=== PATIENT | female | born 1950 | race Caucasian/White ===

== ENCOUNTER 2016-11-24 15:21 | Emergency (ER) | payer MEDICARE ==
[2016-11-24] MEDS ORDERED: SODIUM CHLORIDE 0.9% 1000ML 1,000 ML IVS ONE (15:42)
[2016-11-24] MEDS ORDERED: ONDANSETRON ODT 8 MG TAB SL SCH (16:00)
--- NOTE | 2016-11-24 16:27 | CT ---
PROCEDURE: Head CLINICAL HISTORY: 66 years Female severe headache COMPARISON: None. TECHNIQUE: Contiguous axial images obtained through the brain without IV contrast. This exam was performed according to our department optimization program which includes automated exposure control, adjustment of the mA and/or kv according to patient size and/or use of iterative reconstruction technique. FINDINGS: The ventricles and sulci are within normal limits for the patient's age. No midline shift or mass effect. No masses identified. No acute intracranial hemorrhage. Chondrocalcinosis along the temporomandibular joints bilaterally. No fluid or significant mucosal thickening in the visualized paranasal sinuses. No depressed calvarial fractures. IMPRESSION: No acute intracranial abnormality is identified. Electronically signed by: Christi Ratliff 11/24/2016 4:27 PM CDT
[2016-11-24] MEDS ORDERED: PROMETHAZINE HCL 25 MG TAB PO ONE (17:12)
[2016-11-24] MEDS ORDERED: ALUMINUM & MAGNESIUM HYDROXIDE 30 ML UD PO ONE (17:12)
[2016-11-24] MEDS ORDERED: cloNIDine HCL 0.1 MG TAB PO ONE ×2 (17:20→18:43)
[2016-11-24] MEDS ORDERED: diazePAM 2 MG TAB PO ONE (17:20)
--- NOTE | 2016-11-24 18:46 | ED.PDOC ---
History of Present Illness - General Chief Complaint: Headache Stated Complaint: Severe headache Time Seen by Provider: 11/24/16 15:26 Source: patient Exam Limitations: no limitations - History of Present Illness Initial Comments: The patient is a 66-year-old female presenting to the emergency room secondary to headache and nausea with 1 episode of vomiting. The patient was sent from an outside ER for a head CT secondary to severity of the headache. The patient's blood pressure is significantly elevated upon arrival. The patient was outside yesterday and exposed to the heat for the better part of the day. Additionally the patient takes clonidine but only takes it once in the morning each day. She reports that on multiple occasion she gets headaches. She does not check her blood pressure regularly. No focal neurological symptoms. No syncope or near syncope. She does not take any medications for gastritis. Her stomach has been a little bit upset for the last week. No diarrhea or constipation. She only threw up one time and there was no blood present. Timing/Duration: 24 hours Severity: moderate Improving Factors: nothing Worsening Factors: nothing Associated Symptoms: loss of appetite, malaise Allergies/Adverse Reactions: Allergies NO KNOWN ALLERGY Allergy (Verified 11/24/16 15:47) Home Medications: Ambulatory Orders Famotidine 20 mg PO DAILY #30 tab 11/24/16 Ondansetron [Zofran Odt] 4 mg PO Q4H PRN #10 tab 11/24/16 Review of Systems - Review of Systems Constitutional: States: malaise EENTM: States: no symptoms reported Respiratory: States: no symptoms reported Cardiology: States: no symptoms reported Gastrointestinal/Abdominal: States: abdominal pain, nausea, vomiting - mild Genitourinary: States: no symptoms reported Musculoskeletal: States: no symptoms reported Skin: States: no symptoms reported Neurological: States: headache Endocrine: States: no symptoms reported All other Systems: No Change from Baseline Past Medical History (General) - Patient Medical History Hx Stroke: No Hx Congestive Heart Failure: No Hx Pacemaker: Yes Hx Hypertension: Yes Hx Thyroid Disease: Yes Hx Diabetes: No Hx Gastroesophageal Reflux: Yes - Vaccination History Hx Influenza Vaccination: Yes - 2016 Hx Pneumococcal Vaccination: Yes - 2016 - Social History Hx Tobacco Use: No Family Medical History - Family History Mother Family History: Unknown Living Status: Physical Exam - Physical Exam General Appearance: Alert, Anxious Eye Exam: bilateral normal Ears, Nose, Throat: hearing grossly normal, normal ENT inspection, normal pharynx Neck: non-tender, full range of motion, supple Respiratory: chest non-tender, lungs clear, normal breath sounds, no respiratory distress, no accessory muscle use Cardiovascular/Chest: normal peripheral pulses, regular rate, rhythm, no edema Peripheral Pulses: radial,right: 2+, radial,left: 2+, dorsalis pedis,right: 2+, dorsalis pedis,left: 2+ Gastrointestinal/Abdominal: soft, other - mild epigastric discomfort palpation Rectal Exam: deferred Back Exam: normal inspection, no CVA tenderness, no vertebral tenderness Extremity: normal range of motion, non-tender, normal inspection, no pedal edema , normal capillary refill 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 Again this is a very limited exam by me. Progress - Progress Progress: 11/24/16 18:47 the patient is a 66-year-old female presenting to the emergency room secondary to headache and gastritis symptoms. head CT was negative for any acute changes. She does seem to have poorly controlled hypertension. The patient has only been taking her clonidine once a day and this may be leading to rebound hypertension later in the day. She is to take her clonidine twice a day and keep a blood pressure diary. She needs to follow up with her primary care doctor in 2 days for reevaluation with those numbers. Additionally the patient needs to brain picker and take Pepcid 20 mg once a day for the next month for the gastritis issues. She will also be written for Zofran for as needed use for any nausea. The patient does have some mild rhabdomyolysis possibly from exposure yesterday were possibly as a side effect of medications. The patient received a liter of IV fluids. Renal function appears good. She should probably have her muscle enzymes repeated towards the end of the week to make sure they are improving. If not then an evaluation of her home medications may be warranted to look for other causes. - Results/Orders Results/Orders: Laboratory Tests 11/24/16 11/24/16 11/24/16 15:58 15:58 15:58 WBC 8.1 RBC 4.46 Hgb 10.9 L Hct 35.0 L MCV 78.5 L MCH 24.4 L MCHC 31.3 L RDW 16.2 H Plt Count 301 MPV 9.0 Absolute Neuts (auto) 4.10 Absolute Lymphs (auto) 2.50 Absolute Monos (auto) 1.10 H Absolute Eos (auto) 0.20 Absolute Basos (auto) 0.20 H Neutrophils % 50.5 Lymphocytes % 31.1 Monocytes % 13.3 H Eosinophils % 2.9 Basophils % 2.2 H PT 12.5 INR 1.110 PTT (SP) 21.3 L Sodium 138 Potassium 3.5 L Chloride 100 L Carbon Dioxide 27 Anion Gap 14.5 BUN 14 Creatinine 1.00 BUN/Creatinine Ratio 14.0 Random Glucose 142 H Serum Osmolality 278.6 Calcium 9.8 Total Bilirubin 1.0 AST 70 H ALT 81 H Alkaline Phosphatase 38 L Creatine Kinase 1039 H* CK-MB (CK-2) 30.2 H* CK-MB (CK-2) % 2.91 Troponin I 0.02 Serum Total Protein 7.9 Albumin 4.1 Globulin 3.8 H Albumin/Globulin Ratio 1.1 Amylase 59 Lipase [address] shows no evidence of intracranial hemorrhage or infarction. No evidence of hydrocephalus. Departure - Departure Clinical Impression: Uncontrolled hypertension, Gastritis Headache Qualifiers: Headache type: unspecified Headache chronicity pattern: acute headache Intractability: not intractable Qualified Code(s): R51 - Headache Disposition: Discharge to Home or Self Care Condition: Fair Departure Forms: ED Discharge - Pt. Copy, Patient Portal Self Enrollment Instructions: DI for Headache, DI for Gastritis, DI for Malignant Hypertension Diet: low salt diet Activity: increase activity as tolerated Referrals: CHELE KING [Primary Care Provider] - 1-2 Days Prescriptions: Famotidine 20 mg PO DAILY #30 tab Ondansetron [Zofran Odt] 4 mg PO Q4H PRN #10 tab PRN Reason: Vomiting Home Medications: Ambulatory Orders Famotidine 20 mg PO DAILY #30 tab 11/24/16 Ondansetron [Zofran Odt] 4 mg PO Q4H PRN #10 tab 11/24/16 Additional Instructions: the patient is a 66-year-old female presenting to the emergency room secondary to headache and gastritis symptoms. head CT was negative for any acute changes. She does seem to have poorly controlled hypertension. The patient has only been taking her clonidine once a day and this may be leading to rebound hypertension later in the day. She is to take her clonidine twice a day and keep a blood pressure diary. She needs to follow up with her primary care doctor in 2 days for reevaluation with those numbers. Additionally the patient needs to brain picker and take Pepcid 20 mg once a day for the next month for the gastritis issues. She will also be written for Zofran for as needed use for any nausea. The patient does have some mild rhabdomyolysis possibly from exposure yesterday were possibly as a side effect of medications. The patient received a liter of IV fluids. Renal function appears good. She should probably have her muscle enzymes repeated towards the end of the week to make sure they are improving. If not then an evaluation of her home medications may be warranted to look for other causes.
[2016-11-24 19:10] VITALS: BP 179/84; TEMP 98; O2SAT 96
== END 2016-11-24 19:05 | disposition home or self-care (01) ==
LOC: ER 15:21
DX: R51 Headache (principal); K29.70 Gastritis, unspecified, without bleeding; I10 Essential (primary) hypertension; E07.9 Disorder of thyroid, unspecified; K21.9 Gastro-esophageal reflux disease without esophagitis; Z95.0 Presence of cardiac pacemaker
CPT/HCPCS: 36415; 70450; 80053; 82150; 82550; 82553; 83690; 84443; 84484; 85025; 85610; 85730; J7030; Q0169

== ENCOUNTER → 2016-12-16 | Outpatient (CLI) | payer MEDICARE | LOC: GMAH 14:17 | PROVIDERS: ATTEND Family Medicine | DX: E53.8 Deficiency of other specified B group vitamins (principal); D64.9 Anemia, unspecified; I10 Essential (primary) hypertension; E78.2 Mixed hyperlipidemia ==

== ENCOUNTER → 2017-02-10 | Outpatient (CLI) | payer MEDICARE | LOC: GMAH 10:32 | PROVIDERS: ATTEND Family Medicine | DX: E78.2 Mixed hyperlipidemia (principal) ==

== ENCOUNTER → 2018-04-26 | Outpatient (CLI) | payer MEDICARE | LOC: GMAH 14:58 | PROVIDERS: ATTEND Family Medicine | DX: R30.0 Dysuria (principal) ==

== ENCOUNTER → 2019-01-30 | Outpatient (CLI) | payer MEDICARE ==
--- NOTE | 2019-01-30 15:48 | CT ---
EXAM DESCRIPTION: Lumbar Spine CLINICAL HISTORY: 68 years, Female, LOW BACK PAIN COMPARISON: None TECHNIQUE: Lumbar CT with thin-section axial imaging with reconstructed MPR images reviewed as well. This exam was performed according to our departmental dose-optimization program, which includes automated exposure control, adjustment of the mA and/or kV according to patient size and/or use of iterative reconstruction technique. FINDINGS: Multilevel degenerative disc disease is present with mild dextroscoliosis and multilevel disc degeneration and narrowing evident. Vertebral height is maintained along with normal vertebral alignment. Post surgical changes involving the posterior elements and spinous process removal at the L4 and upper L5 level particularly on the right with right-sided epidural stimulator in place posteriorly at the L5-S1 level. Postsurgical changes from the L3-4 level cephalad are not apparent. Adequate canal and mild annular prominence at T12-L1 with similar findings at L1-2 with mild facet arthropathy is present. Similar findings are also present at L2-3 with slightly more annular prominence but adequate canal and neural foramina. At L3-4 moderate symmetric annular bulge is present with asymmetric left greater than right disc degenerative change and vacuum phenomena present. Degenerative and/or erosive changes particularly involving the left facet joint is present greater than the right side. Canal remains adequate with normal right L3 and mildly inflamed and narrowed left L3 neural foramen. At L4-5 postsurgical changes are present with prior medial laminotomy and spinous process removal with hypertrophic and erosive facet disease and moderate central and left parasagittal disc protrusion with at least moderate circumferential spinal canal stenosis evident at the upper extent of the disc space at this level. Mild left and moderate right L4 foraminal stenosis is present. Just below the disc space a right upper L5 laminotomy is present with epidural stimulator wire leads coursing through the region of the laminotomy. At L5-S1, epidural electrical probe lying in the posterior right epidural space from the inferior L5 to the inferior S1 level posterior lateral to the thecal sac on the right. Hypertrophic advanced facet disease is present bilaterally at this level. Disc contour is poorly visualized secondary to metallic artifact but no obvious herniation or bony stenosis is noted. Mild foraminal encroachment predominantly from facet disease is present at this level. IMPRESSION: 1. Posterior postsurgical changes at the L4 level with medial laminectomy and spinous process removal as well as partial right upper L5 laminectomy noted with indwelling epidural leads and electrodes in the right posterior epidural space at the L5-S1 level 2. Multilevel degenerative disc disease and facet arthrosis with preserved vertebral height and mild dextroscoliosis of the spine. 3. Essentially normal appearance of the lumbar spine and thoracolumbar junction from L2-3 cephalad with mild annular prominence. 4. At L3-4 modest annular bulge and bilateral moderately advanced facet arthropathy left worse than right with a component of erosive facet disease on the left with narrowed and inflamed appearing left L3 neural foramen. 5. Postsurgical changes L4-5 with moderate central and slightly left parasagittal disc protrusion with moderate central canal stenosis. Mild left and moderate right foraminal stenosis present. Advanced facet disease with mixed degenerative and erosive arthropathy of the facet joints. 6. Annular bulge with advanced facet arthropathy L5-S1 with adequate canal and moderate L5 foraminal narrowing. Electronically signed by: Agustin Elizabeth MD 01/30/2019 3:46 PM CDT
== END ==
LOC: CT 14:00
PROVIDERS: ATTEND Family Medicine
DX: M51.16 Intervertebral disc disorders with radiculopathy, lumbar region (principal); M47.26 Other spondylosis with radiculopathy, lumbar region; Z98.890 Other specified postprocedural states

== ENCOUNTER 2019-03-30 12:01 | Inpatient (IN) | payer MEDICARE ==
--- NOTE | 2019-03-30 12:40 | ED.PDOC ---
History of Present Illness - General Chief Complaint: Neuro Symptoms/Deficits Stated Complaint: Confusion, tremor Time Seen by Provider: 03/30/19 12:09 Source: patient, RN notes reviewed, Vital Signs reviewed, RN/MD Exam Limitations: clinical condition Additional Information: Patient sent for clinic for tremors and confusion. - History of Present Illness Initial Comments: Seen by PCP this AM, noted to be tremoring and with confusion. Sent to ED for workup. Timing/Duration: 1-3 hours Severity: moderate Improving Factors: nothing Associated Symptoms: denies symptoms Allergies/Adverse Reactions: Allergies NO KNOWN ALLERGY Allergy (Verified 11/24/16 15:47) Home Medications: Ambulatory Orders Famotidine 20 mg PO DAILY #30 tab 11/24/16 Ondansetron [Zofran Odt] 4 mg PO Q4H PRN #10 tab 11/24/16 Review of Systems - Review of Systems Constitutional: States: no symptoms reported EENTM: States: no symptoms reported Respiratory: States: no symptoms reported Cardiology: States: no symptoms reported Gastrointestinal/Abdominal: States: no symptoms reported Genitourinary: States: no symptoms reported Musculoskeletal: States: joint pain, other - To hips bilaterally Skin: States: no symptoms reported Neurological: States: other - Confusion Endocrine: States: no symptoms reported Hematologic/Lymphatic: States: no symptoms reported Past Medical History (General) - Patient Medical History Hx Stroke: No Hx Congestive Heart Failure: No Hx Pacemaker: Yes Hx Hypertension: Yes Hx Thyroid Disease: Yes Hx Diabetes: No Hx Gastroesophageal Reflux: Yes - Vaccination History Hx Influenza Vaccination: Yes - 2016 Hx Pneumococcal Vaccination: Yes - 2016 - Social History Hx Tobacco Use: No Family Medical History - Family History Mother Family History: Unknown Living Status: Physical Exam - Physical Exam General Appearance: Alert, Comfortable, No apparent distress Eye Exam: bilateral normal Ears, Nose, Throat: normal ENT inspection Neck: non-tender, full range of motion Respiratory: chest non-tender, lungs clear Cardiovascular/Chest: normal peripheral pulses, regular rate, rhythm Gastrointestinal/Abdominal: non tender, soft Back Exam: normal inspection Extremity: normal range of motion, non-tender 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 Skin Exam: normal color Progress - Progress Progress: 03/30/19 15:30 Initially brought over from clinic for tremors and confusion. Per daughter also with vomiting and diarrhea. Labs showed WBC 16k and Cr 2.[address] head and CXR without acute changes. CT A/P ordered to evaluate vague abdominal pain and elevated WBC. Spoke to Hoa Scott who agrees to admit patient for DEVIN and AMS. - EKG/XRAY/CT EKG: Sinus, no ST T wave changes CT: CT A/P pending. Departure - Departure Clinical Impression: DEVIN (acute kidney injury), Altered mental status, Elevated white blood cell count, Metabolic acidosis Disposition: Discharge to Home or Self Care Departure Forms: ED Discharge - Pt. Copy, Patient Portal Self Enrollment Referrals: CHELE KING [Family Provider] - 1-2 Weeks Home Medications: Ambulatory Orders Famotidine 20 mg PO DAILY #30 tab 11/24/16 Ondansetron [Zofran Odt] 4 mg PO Q4H PRN #10 tab 11/24/16 Decision To Admit - Decistion To Admit Decision to Admit Reason: Admit from ER - For DEVIN, AMS and metabolic acidosis Decision to Admit Date: 03/30/19 Decision to Admit Time: 15:33
--- NOTE | 2019-03-30 12:56 | RAD ---
EXAM DESCRIPTION: Chest,1 View CLINICAL HISTORY: 68 years Female, Decreased breath sounds COMPARISON: Previous chest x-ray March 02, 2019 TECHNIQUE: AP portable chest. FINDINGS: Heart size is large with normal pulmonary vascularity. Cardiac pacer in place. Plate and screws in the lower C-spine. Metallic densities in the upper thoracic paraspinous region unchanged from previous. No consolidating infiltrate. No pulmonary mass or worrisome nodule. No pneumothorax or pleural effusion. Bones are unremarkable. IMPRESSION: Prominent heart without congestive failure. Electronically signed by: Chris Delong MD 03/30/2019 12:55 PM CDT
--- NOTE | 2019-03-30 13:01 | CT ---
EXAM DESCRIPTION: Head CLINICAL HISTORY: Confusion COMPARISON: Previous CT head November 24, 2016 TECHNIQUE: Noncontrast head CT was performed with routine protocol. FINDINGS: Normal hawkins-white matter differentiation. Ventricles and sulci are normal for age. No high density hemorrhage, focal edema or shift of the midline. No sulcal effacement. Normal orbital contents. Basilar cisterns appear clear. Intact calvarium with no fracture or lytic lesion. Normal aeration of tympanic cavities and mastoid air cells. Complete opacification of the maxillary sinuses and opacification of the anterior right ethmoid sinus air cells consistent with sinusitis. Developing mucoceles cannot be excluded. No bone destruction. Opacification of right frontal sinus air cell. Left frontal sinus air cell and sphenoid sinus are clear. Skull base appears intact. Symmetrical internal auditory canals. Coronal and sagittal reformatted images confirm the findings. No change in the appearance of the brain compared to the previous study. Paranasal sinus disease appears new. IMPRESSION: No acute intracranial pathologic process. Paranasal sinus opacification involving maxillary, right frontal and anterior right ethmoid air cells, most consistent with sinusitis. This exam was performed according to our departmental dose-optimization program, which includes automated exposure control, adjustment of the mA and/or kV according to patient size and/or use of iterative reconstruction technique. Total DLP equals 859.97 mGycm. Electronically signed by: Chris Delong MD 03/30/2019 12:59 PM CDT
--- NOTE | 2019-03-30 15:35 | CT ---
EXAM DESCRIPTION: Abdoment/Pelvis w/o Contrast CLINICAL HISTORY: Abdominal pain, elevated WBC COMPARISON: None. TECHNIQUE: Noncontrast transaxial CT images of the abdomen and pelvis are obtained. Images are degraded by patient breathing motion artifact limiting detailed evaluation. This exam was performed according to our departmental dose-optimization program, which includes automated exposure control, adjustment of the mA and/or kV according to patient size and/or use of iterative reconstruction technique . FINDINGS: Visualized lower chest shows mild emphysematous changes in the lungs without acute infiltrate. At least 2 less than 4 mm noncalcified pulmonary nodules in the left lower lobe are seen. Cardiac pacemaker leads are seen. Given the limitations of a noncontrast exam the liver, spleen, pancreas, adrenal glands, and gallbladder are unremarkable. Abdominal vasculature is unremarkable. 4 mm nonobstructing calcification in an upper pole calyx of the right kidney. At least 3 less than 5 mm nonobstructing calcifications are seen in calyces of the left mid and upper pole calyces. No ureteral calcification or obstruction. Urinary bladder is partly distended and unremarkable. Uterus is not identified and presumed surgically absent. The ovaries are not seen. Appendix is not identified. Poor distention of the stomach. No mass lesion or inflammatory changes. No dilated loops of small bowel. The colon is unremarkable. No significant diverticular disease. No pathologically enlarged abdominal or retroperitoneal lymphadenopathy. No free intraperitoneal air or abnormal drainable fluid collections. Small fat-containing umbilical hernia. Large calcified granulomata are likely related to prior injections are seen in the gluteal regions bilaterally. Osseous structures are osteopenic. Mild dextrocurvature of the mid lumbar spine. Dorsal column stimulator is seen in the spinal canal at the S1 level. Moderate to severe spondylitic changes of the spine are seen. IMPRESSION: No acute findings on noncontrast CT of the abdomen and pelvis. Nonobstructing bilateral nephrolithiasis. Electronically signed by: Alex Aguila MD 03/30/2019 3:33 PM CDT
--- NOTE | 2019-03-30 16:24 | HP ---
SUPERVISING PHYSICIAN: Ramos Martinez MD CHIEF COMPLAINT: Neurological deficits. HISTORY OF PRESENT ILLNESS: This is a 68 year-old female patient who was seen in her primary care physician's office today. She was quite lethargic and had tremors with confusion. She was sent to the Emergency Room for a workup. It should be noted that the patient has been on long-term narcotic use and has been slowly weaned down by her primary care physician, Magdy Doe MD. She also has some chronic insomnia and was on high doses of Restoril and those have also been weaned down. She does have a history of metabolic encephalopathy in the past. Fluids were started in the Emergency Room. Her initial vital signs were temperature of 97.8, heart rate 113, blood pressure 96/59, respiratory rate 15, oxygen saturation 96% on room air. Lab was drawn. Her WBCs were 16,600, she had a normal differential. Hemoglobin 11, hematocrit 37.1. Sodium 139, potassium 4.6, chloride 105, carbon dioxide 10, BUN 32, creatinine 2.41, blood glucose 142, AST 49, troponin 0.04. Urinalysis had a moderate amount of urine blood. Urine drug screen was negative except she was positive for benzodiazepines. It is to be noted she gets quite large doses of hydrocodone. She has been taking 10/325 mg 3 times a day and her urine drug screen was not positive for narcotics. It was also noted she was supposed to have 10 additional Restoril in her prescription and it was empty. I was called for hospital admission. PAST MEDICAL HISTORY: 1. Hypertension. 2. Hypothyroidism. 3. Rhabdomyolysis. 4. Peripheral neuropathy. 5. Chronic insomnia. 6. Type 2 diabetes mellitus. 7. Gastroesophageal reflux disease. 8. Depression and anxiety. 9. Chronic pain syndrome. 10. Low back pain. PAST SURGICAL HISTORY: 1. Hysterectomy. 2. Herniated disk with fusion x2. 3. Pacemaker insertion. CURRENT MEDICATIONS: Per the EMR and awaiting verification. ALLERGIES: NO KNOWN ALLERGIES. FAMILY HISTORY: SOCIAL HISTORY: REVIEW OF SYSTEMS: Difficult to obtain due to patient's lethargy, although she does wake up and say she is presently not in pain. PHYSICAL EXAMINATION: VITAL SIGNS: Temperature 97.9, heart rate 94, blood pressure 109/77, respiratory rate 22, oxygen saturation 98% on room air. GENERAL: This is a a 68 year-old female patient who is lying in her hospital bed. She is very lethargic. She does open her eyes to command. She can answer some simple yes/no questions. HEENT: Normocephalic and atraumatic. Pupils are equal and reactive. NECK: Supple without mass. CHEST: Diminished at the bases but otherwise clear to auscultation. Chest has equal rise and fall with inspiration and expiration. CARDIOVASCULAR: Regular rate and rhythm. ABDOMEN: Soft, nondistended, non-tender. Bowel sounds are positive. EXTREMITIES: No cyanosis, clubbing, or edema. NEUROLOGIC: She is lethargic to obtunded. She does open her eyes. She is oriented to person and place. SKIN: Warm and dry and pale. LABORATORY: As per the history of present illness. RADIOLOGY: Chest x-ray shows prominent heart without congestive failure. Head CT shows no acute intracranial pathologic process and sinusitis. Abdominal/pelvic CT shows no acute findings on non-contrast CT of the abdomen and pelvis and nonobstructing bilateral nephrolithiasis. All other labs and films have been reviewed via the EMR. ASSESSMENT: 1. Acute kidney injury with admitting creatinine of 2.4, baseline creatinine is less than 1. 2. Metabolic acidosis with metabolic encephalopathy. 3. Anxiety and depression. 4. Chronic pain disorder, continuing to be weaned off her narcotics by her primary care physician, Magdy Doe MD. 5. Polypharmacy. 6. Hypothyroidism. 7. Peripheral neuropathy. 8. Diabetes mellitus type 2, currently on no medications. 9. Chronic insomnia, currently being weaned off of her Restoril slowly. 10. Hypertension. 11. Congestive heart failure of unknown etiology with no current echocardiogram to review at this time. 12. Gastroesophageal reflux disease. PLAN: I have admitted the patient to the hospital. We will give her IV fluids with bicarb in it and recheck her labs in the morning. Neuro checks have been ordered. We will review her home medications after they are verified as there is some discrepancy in what patient is actually taking. At this point, she does not complain of any pain and I do not believe the patient has been taking any of her narcotics as her urine drug screen was negative and she has supposedly been taking 3 hydrocodone daily so unless she complains of pain, we will decide on her narcotic medications at a later time. I have also put her on sliding scale Humalog insulin with sushilac. and h.s. blood sugars. She also has a very small amount of benzodiazepine as needed to help both with the anxiety and to sleep and her Cymbalta. She has a one-time dose for in the morning until those are verified. I have ordered an echocardiogram and she will also be on the quality assurance monitor body. She has a PPI for ulcer prophylaxis and Lovenox for DVT prophylaxis. I spoke with Dr. Doe, her primary care physician, and at this point he would like her Neurontin continued and we can slowly try to increase it. We will also continue on the Cymbalta 60 mg daily. He would like her to be off the Restoril as well as off the hydrocodone. She will also most likely need the Tizanidine discontinued. We can discontinue those here in the hospital and they can be followed up with Dr. Doe in office. We will continue to monitor her closely and follow as needed. [facility][id number] [facility]
[2019-03-30] MEDS ORDERED: HYDROcodone 5MG/APAP 325MG 1 EA TAB PO ONE (18:00)
[2019-03-30] MEDS ORDERED: DEXTROSE 5% 1000ML 1,000 ML IVS ONE (18:14)
[2019-03-30] MEDS ORDERED: SODIUM BICARBONATE VIAL 50 MEQ/50 ML VIAL ONE (18:15)
[2019-03-30] MEDS: SODIUM BICARBONATE SYRINGE 75 MEQ in DEXTROSE 5% 1000ML 1,000 ML IV PRN (18:21)
[2019-03-30] MEDS: IV SET AND CAP CHANGE INJ INJ SCH (18:32)
[2019-03-30] MEDS ORDERED: DEXTROSE 50% 25 GM/50 ML SYG IV PRN (20:18)
[2019-03-30] MEDS ORDERED: GLUCAGON INJ 1 MG VIAL SUBCU PRN (20:18)
[2019-03-30] MEDS: GABAPENTIN 300 MG CAP PO SCH (20:26)
[2019-03-30] MEDS: SODIUM CHLORIDE 0.9% (FLUSH) 10 ML SYG IV SCH (20:27)
[2019-03-30] MEDS: ENOXAPARIN SODIUM 30 MG/0.3 ML SYG SUBCU SCH (20:27)
[2019-03-30] MEDS: INSULIN LISPRO 100 UNITS/ML PEN SUBCU SCH (21:10)
[2019-03-30] MEDS: HYDROcodone 5MG/APAP 325MG 1 EA TAB PO SCH (21:26)
[2019-03-31] MEDS ORDERED: DEXTROSE 5% 1000ML 1,000 ML IVS ONE ×2 (03:16→16:43)
[2019-03-31] MEDS ORDERED: SODIUM BICARBONATE VIAL 50 MEQ/50 ML VIAL ONE ×2 (03:16→16:44)
[2019-03-31] MEDS: SODIUM BICARBONATE SYRINGE 75 MEQ in DEXTROSE 5% 1000ML 1,000 ML IV PRN (03:24)
[2019-03-31] MEDS: HYDROcodone 5MG/APAP 325MG 1 EA TAB PO SCH (05:57)
[2019-03-31] MEDS: PANTOPRAZOLE SODIUM IV 40 MG VIAL IV SCH (05:58)
[2019-03-31] MEDS: INSULIN LISPRO 100 UNITS/ML PEN SUBCU SCH ×4 (07:22→20:58)
[2019-03-31] MEDS ORDERED: DULoxetine HCL 30 MG CAP PO ONE (09:00)
[2019-03-31] MEDS: GABAPENTIN 300 MG CAP PO SCH ×3 (09:11→20:12)
[2019-03-31] MEDS: SODIUM CHLORIDE 0.9% (FLUSH) 10 ML SYG IV SCH ×2 (09:11→20:13)
[2019-03-31] MEDS ORDERED: MAGNESIUM SULFATE PREMIX 2GM 2 GM in PREMIX BAG 1 BAG IVPB ONE (09:23)
[2019-03-31] MEDS ORDERED: MAGNESIUM SULFATE PREMIX 2GM 50 ML IVPB ONE (09:30)
--- NOTE | 2019-03-31 10:44 | CT ---
EXAM DESCRIPTION: Abdoment/Pelvis w/o Contrast CLINICAL HISTORY: 68 years Female, Leukocytis, Metobolic acidosis unkow etiology COMPARISON: CT abdomen and pelvis dated 03/30/2019. TECHNIQUE: Contiguous 3 mm axial images were obtained from the lung bases to the level of the proximal femora without the administration of intravenous or oral contrast. Sagittal and coronal reconstructions were reviewed. FINDINGS: Limited evaluation of the solid organs due to the lack of intravenous contrast. THORAX: The imaged lower thorax demonstrates no gross abnormality. LIVER: The liver demonstrates normal size and density with no intrahepatic biliary ductal dilatation. GALLBLADDER: Grossly unremarkable. PANCREAS: Nonspecific stranding is identified around the head and uncinate process of the pancreas. Remainder of the pancreas appears normal. SPLEEN: Normal ADRENAL GLANDS: Normal with no nodules or masses. KIDNEYS: Nonobstructive calculi measuring up to 5 mm are noted in both kidneys. No hydronephrosis. The visualized ureters appear grossly unremarkable. STOMACH: Mild thickening of the distal esophagus could be secondary to reflux. The stomach is mildly distended with no gross abnormality. SMALL BOWEL: The small bowel loops demonstrate variable degrees of distention with no abnormal dilatation or other signs to suggest bowel obstruction. LARGE BOWEL: Majority of the colon is not well-distended limiting evaluation. No evidence of free intraperitoneal air or fluid. RETROPERITONEUM: The abdominal aorta is nonaneurysmal with no significant atherosclerosis. The inferior vena cava is normal in size and caliber. No abnormally enlarged retroperitoneal lymph nodes are identified. URINARY BLADDER: Well-distended limiting evaluation. Uterus is surgically absent. ADDITIONAL FINDINGS: None. BONES: Mild degenerative changes are identified in the visualized bones.No evidence of osteophytic or osteoblastic lesions. IMPRESSION: 1. Nonspecific stranding and haziness is noted around the head and uncinate process of the pancreas. Clinical correlation for acute pancreatitis is recommended. 2. Nonobstructive nephrolithiasis of both kidneys. This exam was performed according to our departmental dose-optimization program, which includes automated exposure control, adjustment of the mA and/or kV according to patient size and/or use of iterative reconstruction technique. Electronically signed by: Meagan Anderson MD 03/31/2019 10:42 AM CDT
[2019-03-31] MEDS: MORPHINE SULFATE INJ 10 MG/ML VIAL IV PRN ×2 (12:56→18:13)
[2019-03-31] MEDS ORDERED: cefTRIAXone SODIUM 1 GM in SODIUM CHL 0.9% 50ML MIN-BAG+ 50 ML IVPB SCH (13:00)
[2019-03-31] MEDS ORDERED: SODIUM CHL 0.9% 50ML MIN-BAG+ 50 ML IVPB ONE (14:03)
[2019-03-31] MEDS ORDERED: cefTRIAXone SODIUM 1 GM VIAL ONE (14:04)
[2019-03-31] MEDS: cefTRIAXone SODIUM 1 GM in SODIUM CHL 0.9% 50ML MIN-BAG+ 50 ML IVPB SCH (14:19)
[2019-03-31] MEDS: SODIUM BICARBONATE VIAL 75 MEQ in DEXTROSE 5% 1000ML 1,000 ML IVS PRN (16:48)
[2019-03-31] MEDS: ONDANSETRON INJ 4 MG/2 ML VIAL IV PRN (18:52)
[2019-03-31] MEDS: ENOXAPARIN SODIUM 30 MG/0.3 ML SYG SUBCU SCH (20:12)
[2019-04-01] MEDS ORDERED: SODIUM BICARBONATE VIAL 50 MEQ/50 ML VIAL ONE (01:09)
[2019-04-01] MEDS ORDERED: DEXTROSE 5% 1000ML 1,000 ML IVS ONE (01:09)
[2019-04-01] MEDS: SODIUM BICARBONATE VIAL 75 MEQ in DEXTROSE 5% 1000ML 1,000 ML IVS PRN (01:15)
--- NOTE | 2019-04-01 06:54 | RAD ---
EXAM DESCRIPTION: Chest,1 View CLINICAL HISTORY: 68 years Female, acute pancreatitis COMPARISON: Previous study March 30, 2019 TECHNIQUE: AP portable chest. FINDINGS: Heart size is prominent with normal pulmonary vascularity. Cardiac pacer is in place. Orthopedic hardware in the lower C-spine. No consolidating infiltrate. No pulmonary mass or worrisome nodule. No pneumothorax or pleural effusion. Bones are unremarkable. IMPRESSION: No acute process is identified in the chest. Electronically signed by: Chris Delong MD 04/01/2019 6:53 AM CDT
[2019-04-01] MEDS: INSULIN LISPRO 100 UNITS/ML PEN SUBCU SCH ×4 (08:18→21:38)
[2019-04-01] MEDS: GABAPENTIN 300 MG CAP PO SCH ×3 (08:25→20:55)
[2019-04-01] MEDS: SODIUM CHLORIDE 0.9% (FLUSH) 10 ML SYG IV SCH ×2 (08:30→20:55)
--- NOTE | 2019-04-01 10:40 | PN ---
DATE: 03/31/19 SUPERVISING PHYSICIAN: Ramos Martinez MD SUBJECTIVE: The patient is resting. According to her daughter, she seems to be back to her baseline mental status. The patient reports that she still feels bad and is having a little nausea with some left upper quadrant pain. We did discuss some findings on additional labs to indicate as well as CT scan indicating the she probably has pancreatitis as well as when placed with Lynn,. she does have a urinary tract infection and we discussed treatment of this. She has had no complications from the continued sodium bicarb infusion. OBJECTIVE: VITAL SIGNS: Temperature 97.5, pulse 84, blood pressure 132/76, respirations 12, oxygen saturation 98% on room air. Weight 63.0 kg. GENERAL: The patient does overall look unwell but she appears to be in no acute distress. She is resting and she is alert. CHEST: Lung sounds were clear throughout, just diminished toward the bases. HEART: Regular rate and rhythm. ABDOMEN: Soft with some tenderness on palpation of the left upper quadrant. No rebound tenderness, no point non-tender, no peritoneal sounds. Active bowel sounds. EXTREMITIES: Without any edema. NEUROLOGICAL: She is alert, and oriented x3. LABORATORY: White count remains elevated at 16,100 without a noted left shift. Chemistries today show a sodium and potassium normal. Carbon dioxide 12, anion gap 26, BUN 32, creatinine 1.52. Glucose 142 to 201, calcium normal at 9.6. Magnesium low at 1.6. Liver functions were showing to be was negative. Amylase elevated at 184, lipase 203. CPK of 799. . RADIOLOGY: Repeat CT of the abdomen this morning per radiology interpretation showed nonspecific stranding and haziness noted around the head and uncinate process of the pancreas and nonobstructing nephrolithiasis of both kidneys. ASSESSMENT: 1. Acute pancreatitis, uncertain etiology. . 2. Renal insufficiency with prerenal azotemia showing improvement with fluids. 3. Continuing metabolic acidosis with metabolic encephalopathy, improved but continued acidoses probably due to underlying infection and pancreatitis. 4. Urinary tract infection with cultures pending. 5. Anxiety and depression. 6. Chronic pain disorder, on narcotics working with the patient needing to be tapered off at request of Dr. Doe, primary care physician. 7.. Polypharmacy. 8. Hypothyroidism. 9. Peripheral neuropathy. 10. Diabetes mellitus type 2, showing to be fairly stable on sliding insulin protocol. !1.. Chronic insomnia, having been treated with Restoril. 12. Hypertension. 13. Congestive heart failure without previous echocardiogram to review at time. of admission, awaiting updated scan. 14. Gastroesophageal reflux disease. 15. Elevated CPK levels with history of previously having rhabdomyolysis resulting in kidney failure. PLAN: We will continue with IV fluids and include sodium bicarb and will follow her labs this afternoon. If her C02 is not showing improvement as well as renal function, probably need to go ahead and do an ABG but if she is improving will continue the plan of care. Hopefully, her anion gap will start closing as she improves and her kidney function improves. This afternoon, I will go ahead and repeat those labs as well as a lactic acid with the pancreatitis and underlying infection, certainly the patient is quite ill and may need to be transferred for continued high level care but will reassess this afternoon. Will keep her n.p.o. Will control her blood sugar with sliding scale. Will have her on PPI for GI prophylaxis. She will be on morphine as needed for pain and antiemetics as needed for any nausea or vomiting. Will continue hydration therapy, await an echocardiogram and if her echocardiogram shows decent EF we may increase her fluid but at this point we will keep her at 110 or may actually increase that to 125 or 150. I have also requested a Lynn given her critical status so we can monitor strict I&Os. I have also requested that we do a magnesium and phosphorus this afternoon with a BMP. We will plan on repeating labs in the morning and if she is not showing a significant improvement regarding the metabolic acidosis, certainly I will call renal assist to see if there anything different we need to do but at this point, the patient seems to be stable and improving, although slowly. I have started her on antibiotics with Rocephin for the underlying urinary tract infection. Will monitor those blood cultures. Will await urinary culture and sensitivity and then target antibiotic therapy are appropriate once those are available. Will anticipate at least another 48 hours hospitalization. Until we can transition her back to outpatient management, we will continue to monitor and treat as needed #[id number] [facility]
[2019-04-01] MEDS: KCL 20MEQ/D5NS 1,000 ML IVS PRN ×2 (10:57→20:56)
[2019-04-01] MEDS ORDERED: SODIUM CHL 0.9% 50ML MIN-BAG+ 50 ML IVPB ONE (14:40)
[2019-04-01] MEDS ORDERED: cefTRIAXone SODIUM 1 GM VIAL ONE (14:41)
[2019-04-01] MEDS: cefTRIAXone SODIUM 1 GM in SODIUM CHL 0.9% 50ML MIN-BAG+ 50 ML IVPB SCH (14:55)
[2019-04-01] MEDS: MORPHINE SULFATE INJ 10 MG/ML VIAL IV PRN ×2 (17:10→22:46)
[2019-04-01] MEDS: ONDANSETRON INJ 4 MG/2 ML VIAL IV PRN ×2 (17:11→22:47)
[2019-04-01] MEDS: PANTOPRAZOLE SODIUM IV 40 MG VIAL IV SCH (18:10)
--- NOTE | 2019-04-01 19:52 | PN ---
DATE: 04/01/19 SUPERVISING PHYSICIAN: Ramos Martinez M.D. SUBJECTIVE: The patient is much more alert today. She is reporting that she feels a little bit better than previous days, but continues to have some nausea and some left upper quadrant pain. She has been afebrile and has been on a bicarb infusion since admission, but showing good response to treatment. OBJECTIVE: VITAL SIGNS: Temperature 98.6, pulse 85, blood pressure 108/67, respirations 18, satting 94% on room air. I's and O's show a negative balance of 535 with 990 in, 1525 out. Weight is 53.0 kg. GENERAL: The patient does continue to appear unwell but in no acute distress. She is alert. CHEST: Lung sounds are clear to auscultation without notable rhonchi, wheezing or rales. HEART: Regular rate and rhythm. ABDOMEN: Soft with some continued tenderness on palpation to the upper left quadrant. EXTREMITIES: Without any edema. On her left wrist there is some notable edema to the hand from a previous infiltration but pulses were strong radially, capillary refill was brisk. No reported paresthesias and no obvious areas of extravasation or tissue necrosis. NEUROLOGIC: She is alert and oriented times three. LABORATORY: White count today is down to 14,300, hemoglobin has gone down to 8.3, hematocrit 26.9 with platelet count 372,000. Differential is without a left shift. Blood gas analysis shows a pH of 7.49 with bicarb of 33, pO2 was 68 with pCO2 of 44, satting 95% on room air. Chemistries show sodium 132, potassium 3.1, chloride 87, carbon dioxide is up to 26, anion gap is going down but still elevated at 22, BUN 15, creatinine 0.78. Blood sugars range between 152 and 185, calcium 9.0. Amylase is down to 94 and lipase is down to 103. RADIOLOGY: Chest x-ray single view chest this morning per radiology interpretation shows no acute process identified within the chest. ASSESSMENT: 1. Acute pancreatitis, uncertain etiology showing improvement with fluids. 2. Renal insufficiency with prerenal azotemia showing improvement with fluids with creatinine levels back to baseline after fluids. 3. Continuing metabolic acidosis, although improving with metabolic encephalopathy on admission but now back to baseline levels with the patient having been on bicarb infusion showing response to treatment and it was felt that this is probably due to underlying infection, including a urinary tract infection and acute pancreatitis. 4. Urinary tract infection with cultures pending. 5. Anxiety and depression. 6. Chronic pain disorder, on narcotics working with the patient needing to be tapered off at request of Dr. Doe, primary care physician. 7. Polypharmacy. 8. Hypothyroidism. 9. Peripheral neuropathy. 10. Diabetes mellitus type 2, showing to be fairly stable on sliding insulin protocol. 11. Chronic insomnia, having been treated with Restoril. 12. Hypertension. 13. Congestive heart failure without previous echocardiogram to review at time. of admission, awaiting updated scan. 14. Gastroesophageal reflux disease. 15. Elevated CPK levels with history of previously having rhabdomyolysis resulting in kidney failure. PLAN: Will continue with antibiotic coverage for the urinary tract infection with Rocephin. Given that her bicarb now has normalized and her pH is actually alkalotic, will go ahead and change her IV fluids to just D5 normal saline with 20 of potassium and follow labs closely. Repeat a BMP this afternoon. She will remain NPO at least today. Will continue with pain management and fluids. Hopefully we can advance her diet tomorrow. Until we can transition to outpatient management will continue to monitor and treat as needed. #[id number] [facility]
[2019-04-01] MEDS: ENOXAPARIN SODIUM 30 MG/0.3 ML SYG SUBCU SCH (20:54)
[2019-04-02] MEDS: ONDANSETRON INJ 4 MG/2 ML VIAL IV PRN (05:35)
[2019-04-02] MEDS: MORPHINE SULFATE INJ 10 MG/ML VIAL IV PRN (05:35)
[2019-04-02] MEDS: KCL 20MEQ/D5NS 1,000 ML IVS PRN ×2 (05:36→20:21)
[2019-04-02] MEDS: PANTOPRAZOLE SODIUM IV 40 MG VIAL IV SCH (06:01)
[2019-04-02] MEDS: INSULIN LISPRO 100 UNITS/ML PEN SUBCU SCH ×3 (07:23→17:13)
[2019-04-02] MEDS: GABAPENTIN 300 MG CAP PO SCH ×3 (08:55→20:20)
[2019-04-02] MEDS: SODIUM CHLORIDE 0.9% (FLUSH) 10 ML SYG IV SCH ×2 (08:56→20:21)
[2019-04-02] MEDS ORDERED: BISACODYL SUPPOSITORY 10 MG PR ONE (11:27)
[2019-04-02] MEDS: POLYETHYLENE GLYCOL 3350 17 GM PCKT PO SCH (12:28)
[2019-04-02] MEDS: CARVEDILOL 3.125 MG TAB PO SCH (12:28)
[2019-04-02] MEDS ORDERED: SODIUM CHL 0.9% 50ML MIN-BAG+ 50 ML IVPB ONE (14:03)
[2019-04-02] MEDS ORDERED: cefTRIAXone SODIUM 1 GM VIAL ONE (14:03)
[2019-04-02] MEDS: cefTRIAXone SODIUM 1 GM in SODIUM CHL 0.9% 50ML MIN-BAG+ 50 ML IVPB SCH (14:15)
[2019-04-02] MEDS: metFORMIN HCL 500 MG TAB PO SCH (17:13)
--- NOTE | 2019-04-02 18:55 | PN ---
DATE: 04/02/19 SUPERVISING PHYSICIAN: Ramos Martinez M.D. SUBJECTIVE: The patient is doing much better today. She is alert. She knows where she is at. She answers questions appropriately. She has been afebrile. She reports that she actually has an appetite. She is not nauseated. She is no longer having any significant pain in her abdomen. OBJECTIVE: VITAL SIGNS: Temperature 99.1, pulse 98, blood pressure 127/77, respirations 18, satting 99% on 2 liters nasal cannula. I's and O's are showing a negative balance still at -237. Weight is 53.0 kg. GENERAL: The patient is much more alert today. She is answering questions appropriately. She appears to be in no acute distress. She is actually laughing and cutting up with family members, and she is alert. CHEST: Lung sounds were clear throughout, just only slightly diminished towards the bases. HEART: Regular rate and rhythm. ABDOMEN: Soft with no tenderness noted on palpation. Bowel sounds were present. EXTREMITIES: Without any edema. NEUROLOGIC: She is alert and oriented times three. LABORATORY: White count now is returning to normal limits at 10,900. Hemoglobin and hematocrit are showing a slight decrease from yesterday down to 8.1 and 25.5 with a microcytic hypochromic presentation on RBC indices. Platelet count 317,000. Differential today shows just a very slight left shift. Chemistries show normal electrolytes with a normal anion gap at 17, carbon dioxide 30, BUN 7, creatinine 0.6. Iron 15, TIBC 352, iron saturation 4.2, ferritin 131. CPK was down to 162. Amylase was normalized at 85 and lipase 70. Blood sugars remain between 141 and 188. MICROBIOLOGY: Blood cultures remain negative. Urine culture is still pending. RADIOLOGY: No additional radiographic studies today. ASSESSMENT: 1. Acute pancreatitis, uncertain etiology with the patient showing to return back to baseline levels with fluids and able to tolerate diet. 2. Renal insufficiency with prerenal azotemia, improved back to baseline levels. 3. Metabolic acidosis secondary to #1, resolved, having resulted in a metabolic encephalopathy that is now resolved with the patient back to normal baseline mental status. 4. Urinary tract infection with cultures pending. 5. Elevated CPK levels with history of rhabdomyolysis but no signs of any exacerbation and CPK levels returning to baseline. 6. Anxiety and depression. 7. Chronic pain disorder, on narcotics working with the patient needing to be tapered off at request of Dr. Doe, primary care physician. 8. Polypharmacy. 9. Hypothyroidism. 10. Peripheral neuropathy. 11. Diabetes mellitus type 2, showing to be fairly stable on sliding insulin protocol. 12. Chronic insomnia, having been treated with Restoril. 13. Hypertension. 14. Congestive heart failure without previous echocardiogram to review at time. of admission, awaiting updated scan. 15. Gastroesophageal reflux disease. PLAN: Will continue Rocephin at this point. The patient is showing good response to treatment. She is starting to take oral hydration. Will go ahead and decrease her fluids and once she is able to take adequate hydration, will saline lock her. I have advanced her diet to a clear liquid diet. Will continue to advance diet as she can tolerate. Hopefully be able to transition the patient to outpatient management starting tomorrow or Wednesday. After talking with a family member, her daughter, and the patient, they are, based off physical therapy consultation findings and recommendations, if it is recommended they go to [facility] because she does live by herself, that they want her to go to [facility] program in [place]. Will need to get a consultation with Sheila if that is what is the best scenario for the patient to make arrangements for that transfer. Again, she should be medically clear enough to go to a [facility] program or at home within then next 24 to 48 hours. Until then will continue to monitor and treat as needed. [facility][id number] [facility]
[2019-04-02] MEDS: IV SET AND CAP CHANGE INJ INJ SCH (19:39)
[2019-04-02] MEDS ORDERED: LEVOTHYROXINE SODIUM 0.088 MG TAB ONE (20:07)
[2019-04-02] MEDS: ENOXAPARIN SODIUM 30 MG/0.3 ML SYG SUBCU SCH (20:20)
[2019-04-02] MEDS: DULoxetine HCL 30 MG CAP PO SCH (20:20)
[2019-04-03] MEDS: INSULIN LISPRO 100 UNITS/ML PEN SUBCU SCH ×5 (00:34→21:09)
[2019-04-03] MEDS: MORPHINE SULFATE INJ 10 MG/ML VIAL IV PRN ×4 (02:33→22:27)
[2019-04-03] MEDS: ONDANSETRON INJ 4 MG/2 ML VIAL IV PRN ×4 (02:33→22:27)
[2019-04-03] MEDS: PANTOPRAZOLE SODIUM IV 40 MG VIAL IV SCH (05:58)
[2019-04-03] MEDS: LEVOTHYROXINE SODIUM 0.088 MG TAB PO SCH (06:16)
[2019-04-03] MEDS: metFORMIN HCL 500 MG TAB PO SCH ×2 (07:13→16:39)
[2019-04-03] MEDS: CARVEDILOL 3.125 MG TAB PO SCH (08:31)
[2019-04-03] MEDS: POLYETHYLENE GLYCOL 3350 17 GM PCKT PO SCH (08:31)
[2019-04-03] MEDS: GABAPENTIN 300 MG CAP PO SCH ×3 (08:31→21:07)
[2019-04-03] MEDS: DULoxetine HCL 30 MG CAP PO SCH ×2 (08:31→21:07)
[2019-04-03] MEDS: KCL 20MEQ/D5NS 1,000 ML IVS PRN (08:31)
[2019-04-03] MEDS: SODIUM CHLORIDE 0.9% (FLUSH) 10 ML SYG IV SCH ×2 (08:32→21:08)
[2019-04-03] MEDS ORDERED: SODIUM CHLORIDE 0.9% 500ML 500 ML IVS PRN (09:52)
[2019-04-03] MEDS ORDERED: SODIUM CHL 0.9% 50ML MIN-BAG+ 50 ML IVPB ONE (13:01)
[2019-04-03] MEDS ORDERED: cefTRIAXone SODIUM 1 GM VIAL ONE (13:01)
[2019-04-03] MEDS: cefTRIAXone SODIUM 1 GM in SODIUM CHL 0.9% 50ML MIN-BAG+ 50 ML IVPB SCH (13:23)
--- NOTE | 2019-04-03 14:27 | PN ---
SUPERVISING PHYSICIAN: Denny Tijerina MD DATE: 04/03/19 SUBJECTIVE: The patient states she feels a little bit tired, but otherwise no significant complaints. No nausea or vomiting. She was walking in the [place] earlier as well. OBJECTIVE: VITAL SIGNS: Blood pressure 125/73. Heart rate 78. Respiratory rate 16. Temperature 98.0. Oxygen saturation 98%. GENERAL: Ms. Antonio is a 68-year-old female in no acute distress. NEUROLOGIC: Alert and oriented. LUNGS: Clear to auscultation bilaterally. CARDIOVASCULAR: Regular rate and rhythm. Normal S1, S2. ABDOMEN: Soft. Positive bowel sounds. GENITOURINARY: Deferred. EXTREMITIES: Lower extremities with no edema. LABORATORY: Hemoglobin this morning was 7.4. ASSESSMENT: 1. Significant metabolic acidosis, which was improved after IV fluids with bicarbonate infusion. 2. Renal insufficiency, now resolved. 3. Urinary tract infection with culture pending. 4. Anemia requiring 2 units of packed red blood cells today. 5. Acute pancreatitis. 6. Chronic pain disorder on chronic narcotic therapy, which is being attempted to taper off by her primary care physician, Dr. Doe. 7. Polypharmacy. 8. Hypothyroidism. 9. Peripheral neuropathy. 10. Diabetes mellitus, type 2. 11. Chronic insomnia. 12. Hypertension. 13. Congestive heart failure with no acute exacerbation. 14. Gastroesophageal reflux disease. PLAN: We will continue all current therapies. She seems to be improving, however, today her hemoglobin is lower at 7.4. I am sure this is multifactorial. She does have chronic anemia plus she was given copious amounts of IV fluids to treat her metabolic acidosis. I am sure some of this is hemodilution, however, given the anemia, we will give her a couple of units of blood today. We are recommending [facility] for her. She is currently being evaluated by [facility] and hopefully can be discharged to that in the next 24 to 48 hours. [facility][id number] [facility]
[2019-04-03] MEDS: ENOXAPARIN SODIUM 30 MG/0.3 ML SYG SUBCU SCH (21:08)
[2019-04-03] MEDS: SODIUM CHLORIDE 0.9% (FLUSH) 10 ML SYG IV PRN (22:30)
[2019-04-04] MEDS: PANTOPRAZOLE SODIUM IV 40 MG VIAL IV SCH (06:10)
[2019-04-04] MEDS: LEVOTHYROXINE SODIUM 0.088 MG TAB PO SCH (06:10)
[2019-04-04] MEDS: SODIUM CHLORIDE 0.9% (FLUSH) 10 ML SYG IV PRN (06:10)
[2019-04-04] MEDS: INSULIN LISPRO 100 UNITS/ML PEN SUBCU SCH (07:13)
[2019-04-04] MEDS: CARVEDILOL 3.125 MG TAB PO SCH (09:37)
[2019-04-04] MEDS: GABAPENTIN 300 MG CAP PO SCH (09:37)
[2019-04-04] MEDS: POLYETHYLENE GLYCOL 3350 17 GM PCKT PO SCH (09:38)
[2019-04-04] MEDS: SODIUM CHLORIDE 0.9% (FLUSH) 10 ML SYG IV SCH (09:38)
[2019-04-04] MEDS: DULoxetine HCL 30 MG CAP PO SCH (09:38)
[2019-04-04] MEDS: metFORMIN HCL 500 MG TAB PO SCH (09:39)
[2019-04-04 09:56] VITALS: BP 146/68; TEMP 97.8; O2SAT 96
--- NOTE | 2019-04-04 15:13 | DS ---
SUPERVISING PHYSICIAN: Denny Tijerina MD ADMISSION DIAGNOSIS: 1. Acute kidney injury. 2. Metabolic acidosis. 3. Metabolic encephalopathy. 4. Anxiety and depression. 5. Chronic pain disorder. 6. Polypharmacy. 7. Hypothyroidism. 8. Peripheral neuropathy. 9. Diabetes mellitus, type 2. 10. Chronic insomnia. 11. Hypertension. 12. Congestive heart failure. 13. Gastroesophageal reflux disease. DISCHARGE DIAGNOSIS: 1. Metabolic acidosis, resolved. 2. Renal insufficiency, resolved. 3. Urinary tract infection. 4. Anemia requiring 2 units of packed red blood cells. 5. Acute pancreatitis. 6. Chronic pain disorder. 7. Polypharmacy. 8. Hypothyroidism. 9. Peripheral neuropathy. 10. Diabetes mellitus, type 2. 11. Chronic insomnia. 12. Hypertension. 13. Congestive heart failure with no acute exacerbation. 14. Gastroesophageal reflux disease. HOSPITAL COURSE: This is a 68-year-old female who went to her primary care physician's office and was lethargic and had tremors as well as some confusion. Therefore, she was sent to the Emergency Room. She is a long-term narcotic user and was slowly being weaned down by her primary care physician, Dr. Magdy Doe. In the Emergency Room, she was seen and noted to have increased white blood cell count, elevated creatinine and significant metabolic acidosis. She was placed on IV fluids with bicarb. She also had a CT scan of the abdomen and pelvis times 2. A second one showed a little bit of inflammation of the pancreas along with elevated amylase and lipase to indicate she had some pancreatitis as well. She was noted to have a urinary tract infection as well which was mild and was placed on antibiotics. Over the next several days, she improved with those therapies. She continued to have no administration of narcotics while she was here and did not have any withdrawal symptoms. Her mentation cleared and she was ambulated in the [facility] with physical therapy without difficulty. I discussed with the patient and the family and they decided to go to [facility] in [place] for continued physical therapy. Therefore, today, the patient will be discharged in stable condition to the [facility] facility. I resumed her Acute Care medications there as they worked for her as far as adequate pain control and she is not utilizing narcotics at this time. I called report to Dr. Parker in [place] and he has accepted the patient. Further care regarding her patient and any other measures will be done at that facility. #[id number] MARLEN
== END 2019-04-04 10:53 | disposition swing bed (61) | DRG 682 ==
LOC: SUPCPDRO 12:01 → ER 12:01 → OBSVTOIN 16:22 → MS 16:22
PROVIDERS: ADMIT Nurse Practitioner Acute Care; ATTEND Nurse Practitioner Family
PROC: 30233N1 Transfusion of Nonautologous Red Blood Cells into Peripheral Vein, Percutaneous Approach (ICD-10-PCS; principal; 2019-04-03)
DX: N17.9 Acute kidney failure, unspecified (principal); K85.90 Acute pancreatitis without necrosis or infection, unspecified; E87.2 Acidosis; N39.0 Urinary tract infection, site not specified; G93.41 Metabolic encephalopathy; D64.9 Anemia, unspecified; G89.4 Chronic pain syndrome; E03.9 Hypothyroidism, unspecified; E11.42 Type 2 diabetes mellitus with diabetic polyneuropathy; G47.00 Insomnia, unspecified; I11.0 Hypertensive heart disease with heart failure; I50.9 Heart failure, unspecified; K21.9 Gastro-esophageal reflux disease without esophagitis; F32.9 Major depressive disorder, single episode, unspecified; F41.9 Anxiety disorder, unspecified; M54.5 Low back pain; Z66 Do not resuscitate; Z79.891 Long term (current) use of opiate analgesic; Z95.0 Presence of cardiac pacemaker; Z79.899 Other long term (current) drug therapy

== ENCOUNTER 2020-02-16 06:10 | Day surgery (SDC) | payer MEDICARE ==
[2020-02-16] MEDS ORDERED: LACTATED RINGERS 1,000 ML ONE (06:54)
[2020-02-16] MEDS ORDERED: LIDOCAINE 1% 10 ML VIAL INJ ONE (07:00)
[2020-02-16] MEDS ORDERED: PROPOFOL 200 MG/20 ML VIAL IV ONE (07:00)
--- NOTE | 2020-02-16 09:06 | OP ---
DATE OF PROCEDURE: 02/16/20 PREOPERATIVE DIAGNOSIS: 1. Screening colonoscopy. POSTOPERATIVE DIAGNOSIS: 1. Poor prep. 2. Incomplete exam. PROCEDURE: 1. Colonoscopy. SURGEON: Denny Ceballos MD ANESTHESIA: General. COMPLICATIONS: None. PLAN: Repeat exam. INDICATION: As stated. PROCEDURE: In lateral position, general anesthesia was induced. Digital rectal exam was unremarkable. The colonoscope was inserted. We could notice some stool although mostly liquid in the left colon, but as we got to the right side, we got passed the hepatic flexure and there was a lot of formed stool with flecks of vegetable matter that would clog the scope. We were unable to irrigate effectively. That which we did see was normal. Upon withdrawal, the mucosal surfaces that appeared were normal. There were some areas where we could not aspirate the stool. It is an incomplete exam. Although 3/5 of the exam that we did see looked clean, I do recommend a repeat scope considering. She tolerated the procedure and was taken to Recovery to be discharged. #[id number] MTDD
[2020-02-16 09:55] VITALS: BP 171/72; TEMP 97.8; O2SAT 92
== END 2020-02-16 09:35 ==
LOC: AMB 06:10
PROVIDERS: ATTEND Surgery
DX: Z12.11 Encounter for screening for malignant neoplasm of colon (principal); E11.9 Type 2 diabetes mellitus without complications; I50.32 Chronic diastolic (congestive) heart failure; E78.00 Pure hypercholesterolemia, unspecified; E66.9 Obesity, unspecified; G89.29 Other chronic pain; Z79.899 Other long term (current) drug therapy; Z79.84 Long term (current) use of oral hypoglycemic drugs
CPT/HCPCS: 00812; 36416; 82948; G0121; J3490; J7120